=== PATIENT | male | born 1945 | race Caucasian/White ===

== ENCOUNTER 2018-05-07 11:48 | Outpatient (CLI) | payer MEDICARE, OTHER ==
[~2018-05-07] VITALS: Ht 175.3 cm; Wt 70.3 kg
[~2018-05-07 11:48] MED LIST: ASPI-875 PO; DEXL60CA PO; HCT25T PO; HYDR25TA4 PO; LISI40TA PO; NFNEB10T PO; NIFE30TA89 PO; OMEP40CA36 PO; SCR1T PO; SUCR1TAB PO
== END 2018-05-07 11:57 | disposition home or self-care (01) ==
LOC: PREOP 11:48
PROVIDERS: ATTEND Surgery
DX: Z01.818 Encounter for other preprocedural examination (principal)

== ENCOUNTER 2018-05-09 09:12 | Day surgery (SDC) | payer MEDICARE, OTHER ==
[~2018-05-09] VITALS: Ht 175.3 cm; Wt 70.3 kg
--- OUTSIDE RECORDS SUMMARY | 2018-05-09 09:16 | XMS REPORT | Continuity of Care Document ---
Author Author [facility] Organization [facility] Address Unknown Phone Unavailable Support Name Relationship Address Phone [place] Next Of Kin [address] [place] [address] Insurance Providers Payer Name Policy Number Subscriber Name Relationship [employer] [id number] Pam Tuckersuni [place] Self / Same As Patient UMR [id number] CaliAashish L Self / Same As Patient Advance Directives Directive Response Recorded Date Advance Directives N 03/27/13 9:10am Health Care Power of Stock Order Lister N 03/27/13 9:10am Organ Donor N 03/27/13 9:10am Problems No Known Problems or Medical conditions. Allergies, Adverse Reactions, Alerts Allergen Type Severity Reaction Last Updated Cephalexin Allergy Unknown 08/13/10 Medications Medication Dose Units Route Sig Qty Days Aspirin ([place] Aspirin) 81 Mg PO DAILY Dexlansoprazole (Dexilant) 60 Mg PO DAILY Sucralfate (Carafate Susp) 2 Tsp PO ACHS Lisinopril (Prinivil) 40 Mg PO DAILY Hydrochlorothiazide (Hctz) 25 Mg PO DAILY@0900 Nebivolol Hcl (Bystolic) 1 Each PO DAILY Immunizations Name Given Type Date of Pneumonia Vaccine 04/26/12 H Date of Influenza Vaccine 04/26/12 H Response Recorded Date/Time Status not known Unknown Results No Known Relevant Diagnostic Tests, Laboratory Data and/or Discharge Summary. Procedures Procedure Code Date LESION REMOVE COLONOSCOPY 43847 08/13/10 UPPER GI ENDOSCOPY BIOPSY [id number] 08/13/10
--- OUTSIDE RECORDS SUMMARY | 2018-05-09 09:16 | XMS REPORT | Continuity of Care Document ---
Author Author [facility] Organization [facility] Address Unknown Phone Unavailable Allergies Active Description Code Type Severity Reaction Onset Reported/Identified Relationship to Patient Clinical Status Yes cephalexin [id number] Drug Allergy Unknown N/A 08/13/2010 Medications There is no data. Problems Date Dx Coded Attending Type Code Diagnosis Diagnosed By 03/27/2013 RENATE NEIL MD, Ot 211.4 BENIGN NEOPL RECTUM/ANUS 03/27/2013 RENATE NEIL MD Ot 455.0 INT HEMORRHOID W/O COMPL 03/27/2013 RENATE NEIL MD, Ot 455.3 EXT HEMORRHOID W/O COMPL 03/27/2013 RENATE NEIL MD Ot 530.11 REFLUX ESOPHAGITIS 03/27/2013 RENATE NEIL MD Ot 535.50 UNSP GASTRITIS GASTRODUODENITIS W/O ME 03/27/2013 RENATE NEIL MD Ot 562.10 DIVERTICULOSIS COLON (W/O MENT OF HEMORR 05/03/2018 RENATE NEIL MD Ot Z01.818 ENCOUNTER FOR OTHER PREPROCEDURAL EXAMIN 05/07/2018 RENATE NEIL MD Ot Z01.818 ENCOUNTER FOR OTHER PREPROCEDURAL EXAMIN 05/07/2018 RENATE NEIL MD Ot Z01.818 ENCOUNTER FOR OTHER PREPROCEDURAL EXAMIN 05/08/2018 RENATE NEIL MD, Ot Z01.818 ENCOUNTER FOR OTHER PREPROCEDURAL EXAMIN 05/08/2018 RENATE NEIL MD Ot Z01.818 ENCOUNTER FOR OTHER PREPROCEDURAL EXAMIN 05/08/2018 RENATE NEIL MD Ot V72.84 EXAM PRE-OPERATIVE NOS Procedures There is no data. Results There is no data. Encounters ACCT No. Visit Date/Time Discharge Status Pt. Type Provider Facility Loc./Unit Complaint [id number] 05/07/2018 11:48:00 05/07/2018 11:57:00 DIS Outpatient RENATE NEIL MD [facility] PREOP COLONOSCOPY/EGD [id number] 03/27/2013 08:55:00 03/27/2013 12:30:00 DIS Outpatient RENATE NEIL MD [facility] REFLUX/HISTORY OF POLYPS [id number] 03/20/2013 07:18:00 03/20/2013 23:59:59 CLS Outpatient RENATE NEIL MD [facility] PREOP REFLUX/HISTORY OF POLYPS [id number] 05/09/2018 09:30:00 PEN Preadmit RENATE NEIL MD [facility] ENDO +BLOOD IN STOOL/ABD PAIN
[2018-05-09] MEDS ORDERED: NS IV 500 ML 500 ML IV PRN (09:23)
[2018-05-09 09:25] VITALS: BP 153/91
[2018-05-09] MEDS ORDERED: LIDOCAINE JELLY 2% 6 ML SYRINGE MM PRN (09:30)
[2018-05-09] MEDS ORDERED: MIDAZOLAM 2 MG/2 ML (VERSED) VIAL IVP ONE (09:30)
[2018-05-09] MEDS ORDERED: fentaNYL INJECTION 100 MCG/2 ML AMP IVP ONE (09:30)
[2018-05-09] MEDS ORDERED: HURRICAINE EXT TUBE (BENZOCAINE) XX PRN (09:30)
[2018-05-09] MEDS ORDERED: NS IV 500 ML 500 ML ONE (09:31)
[2018-05-09] MEDS ORDERED: LIDOCAINE JELLY 2% 6 ML SYRINGE ONE (09:56)
[2018-05-09] MEDS ORDERED: HURRICAINE EXT TUBE (BENZOCAINE) ONE (09:57)
[2018-05-09] MEDS ORDERED: MIDAZOLAM 2 MG/2 ML (VERSED) VIAL ONE ×4 (09:57)
[2018-05-09] MEDS ORDERED: fentaNYL INJECTION 100 MCG/2 ML AMP ONE ×2 (09:57)
--- NOTE | 2018-05-09 10:11 | Conscious Sedation/ASA ---
Conscious Sedation Pre-Proced Time 09:30 ASA Score 2 For ASA 3 and 4: Consider anesthesia and medical clearance. Also, for patients with a history of failed moderate sedation consider anesthesia. Airway Lungs Heart ASA score ASA 1: a normal healthy patient ASA 2: a patient with a mild systemic disease (mid diabetes, controlled hypertension, obesity ASA 3: a patient with a severe systemic disease that limits activity (angina , COPD, prior Myocardial infarction) ASA 4: a patient with an incapacitating disease that is a constant threat to life (CHF, renal failure) ASA 5: a moribund patient not expected to survive 24 hrs. (ruptured aneurysm) ASA 6: a declared brain patient whose organs are being harvested. For emergent operations, add the letter E after the classification Mallampati Classification Grade 2 Sedation Plan Analgesia, Amnesia, Plan communicated to team members, Discussed options with patient/fam, Discussed risks with patient/fam The patient is an appropriate candidate to undergo the planned procedure, sedation, and anesthesia. The patient immediately re-assessed prior to indication. RENATE NEIL MD May 09, 2018 10:11 am
--- NOTE | 2018-05-09 10:11 | Progress Note-Pre Operative ---
Pre-Operative Progress Note H&P Reviewed The H&P was reviewed, patient examined and no changes noted. Date Seen by Provider: May 09, 2018 Time Seen by Provider: :30 Date H&P Reviewed: May 09, 2018 Time H&P Reviewed: :30 Pre-Operative Diagnosis: GERD, rectal bleed RENATE NEIL MD May 09, 2018 10:11 am
[2018-05-09] MEDS ORDERED: HYDROcodone/APAP 5 MG/325 MG (LORTAB) TAB PO PRN (10:15)
[2018-05-09] MEDS ORDERED: ACETAMINOPHEN 325 MG TABLET PO PRN (10:15)
[2018-05-09] MEDS ORDERED: ONDANSETRON 4 MG/2 ML (SDV) Z0FRAN IV PRN (10:15)
[2018-05-09] MEDS ORDERED: morphine INJ 10 MG/ML 1ML (SYR OR VIAL) IV PRN (10:15)
--- NOTE | 2018-05-09 11:30 | Progress Note-Post Operative ---
Post-Operative Progess Note Surgeon (s)/Cattle Broker (s) Surgeon RENATE NEIL MD Cattle Broker: none Pre-Operative Diagnosis GERD, rectal bleed Post-Operative Diagnosis reflux esophagitis(stage 2), no recurrent hiatal hernia, mild-mod gastritis. chronic stage 2-3 ext and int hemorrhoids, mild proctitis, HP rectal polyp(2mm), moderate sigmoid diverticulosis. Procedure & Operative Findings Date of Procedure 05/09/18 Procedure Performed/Findings EGD with bx. Colonoscopy with bx. Anesthesia Type CS Estimated Blood Loss Estimated blood loss (mL): minimal Specimens/Packing Specimens Removed GE jxn, antrum, rectum, rectal polyp RENATE NEIL MD May 09, 2018 11:30 am
--- NOTE | 2018-05-09 11:34 | Discharge Inst-Surgical ---
D/C Lap Instructions-KIDO New, Converted, or Re-Newed RX: RX on Chart Follow Up Appt in 2 weeks will schedule outpatient u/s an possible HIDA as OP Activity as tolerated High Fiber Diet 25g or more per day Avoid Alcohol, Caffeine, Spicy [place] and Acid foods. Drink 64 fluid oz or more of fluids per day. Symptoms to Report: Fever over 101 degree F, Nausea/Vomiting If any problems/questions: Contact your physician or go to Emergency Room RENATE NEIL MD May 09, 2018 11:34 am
[2018-05-09 11:35] VITALS: BP 128/65
[2018-05-09 12:10] VITALS: BP 129/73
[2018-05-09 12:35] VITALS: BP 129/73
--- NOTE | 2018-05-09 15:48 | OPERATIVE REPORT ---
DATE OF SERVICE: 05/09/2018 ATTENDING PRIMARY CARE PHYSICIAN: Dr. Alfaro in [place], [place]. PREOPERATIVE DIAGNOSES: Rectal bleed, gastroesophageal reflux disease. POSTOPERATIVE DIAGNOSES: Reflux esophagitis grade II. No recurrent hiatal hernia. Mild to moderate gastritis. No distal obstructions. Chronic between stage II and III external and internal hemorrhoids. Mild proctitis, small hyperplastic rectal polyp approximately 2 mm in size. Moderate sigmoid diverticulosis. PROCEDURE: EGD with biopsy, colonoscopy with biopsy. SURGEON: Renate Hodge MD. ANESTHESIA: Conscious sedation. ESTIMATED BLOOD LOSS: Minimal. FINDINGS: EGD, reflux esophagitis grade II. No recurrent hiatal hernia with intact previous wrap, mild to moderate gastritis, no ulcers, polyps or any neoplasms. Pylorus and duodenum appeared normal with no distal obstructions. Colonoscopy, chronic between stage II and III external and internal hemorrhoids with no active bleeding. Prostate gland was palpable and appeared normal. There was areas of mild patchy proctitis, small hyperplastic polyp of the rectum, moderate sigmoid diverticulosis, no signs of diverticulitis. Remainder of the colon was normal. DISPOSITION: The patient tolerated the procedure well. INDICATIONS: The patient is a 73-year-old male known to us. He has been seen before for gastroesophageal reflux disease, nausea and vomiting as well as abdominal distention. He did have significant reflux and did undergo hiatal hernia repair and Dirk fundoplication in 2002. We had first seen him in 07/2010 where we proceeded with an EGD and colonoscopy. EGD did show a reflux esophagitis. No recurrent hiatal hernia. Colonoscopy showed a small hyperplastic polyp of the rectum as well as sigmoid diverticulosis; however, no other lesions. We have seen him again in 2012 for similar symptoms. Again, similar findings were identified and biopsies of the GE junction were negative for Gutierres's esophagus and biopsies of the antrum were negative for H. pylori. He does have risk factors including smoking for greater than 50 pack years. He has had recurrence of symptoms including epigastric pain as well as intermittent nausea. He also reports an episode of copious amounts of red blood per rectum that lasted for four days; however, stopped on its own. DESCRIPTION OF PROCEDURE: The patient was brought to the endoscopy suite, laid in left lateral decubitus position with the head slightly elevated. After adequate IV pain and sedative medications and conscious sedation anesthesia, the mouthpiece was applied. Endoscope was placed in the mouth, visualizing the pharynx and hypopharyngeal region. Vocal cords, epiglottis and vallecula identified and appeared to be normal. The endoscope was then gently intubated in the esophageal opening and esophagus insufflated. The endoscope was then advanced to the first, second and third portion of the esophagus at the level of the GE junction, a reflux esophagitis grade II identified. There were no ulcers or strictures identified in this region. A biopsy was taken with forceps with visualization of good hemostasis. The endoscope was then advanced into the stomach and endoscope retroflexed visualizing an intact previous wrap and Dirk fundoplication with no recurrence of hiatal hernia. There was a mild to moderate gastritis. No formal ulcerations, polyps or any neoplasms. A biopsy was taken of the stomach antrum to rule out H. pylori using forceps with visualization of good hemostasis. The endoscope was then advanced to the pylorus and the first and second portion of the duodenum, which appeared normal with no distal obstructions. The endoscope was then slowly withdrawn while taking a second look and suctioning of residual air with no additional findings. The patient tolerated this portion of the procedure well. We will have him continue with medical management with smoking cessation as well as small and more frequent meals, avoidance of eating at night as well as head elevation while lying supine. He also needs to avoid caffeinated beverages, spicy, greasy and acidic foods. If he has worsening symptoms of nausea and vomiting, especially after eating meals, then he may have a gallbladder etiology and we will proceed with an ultrasound of the gallbladder and if negative, proceed with a HIDA scan to look for a biliary dyskinesia. Under the same anesthesia, we then proceeded with the colonoscopy portion of procedure. A digital rectal examination was performed, which revealed chronic between stage II and III external and internal hemorrhoids, which were not actively edematous nor inflamed and no bleeding. Prostate gland was palpable and appeared normal. The endoscope was then intubated to the anus and the rectum gently insufflated. The endoscope was then advanced to the valves of [place] of the rectum with mild patchy proctitis identified. There was no active bleeding. There were no ulcerations. A biopsy was taken of this region using forceps with visualization of good hemostasis. A small hyperplastic polyp approximately 2 mm in size was also identified and biopsied as well. The endoscope was then advanced to the sigmoid colon where a moderate sigmoid diverticulosis identified. There were no mucosal inflammatory changes to indicate any active diverticulitis. The endoscope was then advanced to the remainder of the descending, transverse and ascending colon to the cecum. These segments were normal. The endoscope was then slowly withdrawn while taking a second look and suctioning of residual air with no additional findings. The patient tolerated the procedure well. We will recommend continued medical management with a high fiber diet with at least 30 grams of fiber per day and at least 64 fluid ounces of water daily to promote soft stools on a daily basis. We are unsure of the etiology of the patchy proctitis; however, may be due to a low level ischemic issue versus a bacterial overgrowth. We can also not rule out the possibility of a low level ulcerative colitis and we will await the biopsy results. We feel that the most likely etiology of his bleeding was the internal hemorrhoidal bleeding. Job ID: [id number] DocumentID: [id number] Dictated Date: 05/09/2018 11:21:44 Collet Gluer Date: 05/09/2018 15:47:36 Dictated By: RENATE HODGE MD MTDD
== END 2018-05-09 12:38 | disposition home or self-care (01) ==
LOC: ENDO 09:12
PROVIDERS: ATTEND Surgery
DX: K62.89 Other specified diseases of anus and rectum (principal); K62.1 Rectal polyp; K64.1 Second degree hemorrhoids; K57.30 Diverticulosis of large intestine without perforation or abscess without bleeding; K21.0 Gastro-esophageal reflux disease with esophagitis; K29.70 Gastritis, unspecified, without bleeding; F17.210 Nicotine dependence, cigarettes, uncomplicated; I10 Essential (primary) hypertension; I73.9 Peripheral vascular disease, unspecified; Z79.899 Other long term (current) drug therapy; Z87.19 Personal history of other diseases of the digestive system
CPT/HCPCS: 88305